=== PATIENT | male | born 1985 | race African-American/Black ===

== ENCOUNTER 2017-11-06 23:54 | Emergency (ER) | payer OTHER ==
[~2017-11-06] VITALS: Ht 167.6 cm; Wt 109.7 kg
[2017-11-07] VITALS: TEMP 36.9; Ht 167.6 cm; Wt 109.7 kg
[2017-11-07] MEDS ORDERED: PENI-82 PO (00:22)
[2017-11-07] MEDS ORDERED: OXYC-90 PO (00:22)
--- NOTE | 2017-11-07 00:23 | EMERGENCY ROOM VISIT NOTE ---
History First contact with patient: 00:01 Chief Complaint: DENTAL PAIN Stated Complaint: BAD TOOTH PAIN Nursing Triage Summary: Patient reports that he is having top right sided dental pain. Pain started last night, ibuprofen helped at first, now it's not. History of Present Illness The patient is a 32 year old male who presents to the Emergency Room with complaints of upper right dental pain. The patient states that he has a "bad tooth" and has had a hole in it for a while. He states that he typically has intermittent pain in the tooth but it usually goes away with ibuprofen. He has taken ibuprofen on 2 occasions today without relief of the pain. The pain has been constant throughout the day today. The patient is a smoker. He rates his discomfort an 8.5/10. He states the pain is radiating into his ear and face. He does not have a dentist. Review of Systems A complete 10 point review of systems was reviewed with the patient with pertinent positives and negatives as per history of present illness. All else were negative. Past Medical/Surgical History Medical Problems: (1) No significant active problems Social History Smoking Status: Current Every Day Smoker Occupation Status: employed Current/Historical Medications Scheduled Penicillin V Potassium (Veetids), 500 MG PO QID Scheduled PRN Oxycodone Ir (Roxicodone Ir), 1 TAB PO Q4H PRN for Pain Physical Exam Vital Signs Date Time Temp Pulse Resp B/P (MAP) Pulse Ox O2 Delivery O2 Flow Rate FiO2 11/07/17 00:31 61 18 149/84 98 11/07/17 00:00 36.9 62 18 143/96 97 Room Air Physical Exam VITALS: Vitals are noted on the nurse's note and reviewed by myself. Vital signs stable. GENERAL: This is a 32-year-old male, in no acute distress, nondiaphoretic, well- developed well-nourished. SKIN: The skin was without rashes. EARS: External auditory canals clear, tympanic membranes pearly vazquez without erythema or effusion bilaterally. EYES: Pupils equal round and reactive to light and accommodation. MOUTH: Mucous membranes moist. There are are multiple dental caries. There is significant decay to the right upper back molar. No significant gum swelling or drainage. NECK: Supple without nuchal rigidity. No lymphadenopathy. HEART: Regular rate and rhythm without murmurs gallops or rubs. LUNGS: Clear to auscultation bilaterally without wheezes, rales or rhonchi. NEURO: Patient was alert and oriented to person place and time. Medical Decision & Procedures Medications Administered Medications (Trade) Dose Ordered Sig/Livia Route Start Time Stop Time Status Last Admin Dose Admin Penicillin V Potassium (Pen-Vk 500MG Home Pack) 1 homepack UD ONCE PO 11/07/17 00:30 11/07/17 00:31 DC 11/07/17 00:27 1 HOMEPACK Oxycodone HCl (Roxicodone Immediate Rel 5MG Home Pack) 1 homepack UD ONCE PO 11/07/17 00:30 11/07/17 00:31 DC 11/07/17 00:27 1 HOMEPACK Medical Decision Differential diagnosis includes dentalgia, dental abscess, dental caries, Cristiano 's angina, facial cellulitis, among others. The patient was evaluated as above. He presents today complaining of dental pain. He will be placed on penicillin. He was given a home pack and prescription of OxyIR for pain. He was advised to follow-up with a dentist for definitive care. He verbalized understanding of my assessment and treatment plan and was discharged home in good condition. [place] Drug Monitoring Program Search Results: patient reviewed within database, no issues identified Medication Reconcilliation Current Medication List: was personally reviewed by me Blood Pressure Screening Patient's blood pressure: Normal blood pressure Impression Primary Impression: Dental abscess Departure Information Dispostion Home / Self-Care Condition GOOD Prescriptions Oxycodone Ir (Roxicodone Ir) 5 Mg Tab 1 TAB PO Q4H Y for Pain, #12 TAB For Initial Treatment Prov: Twila De La Rosa PA-C 11/07/17 Penicillin V Potassium (Veetids) 500 Mg Tab 500 MG PO QID for 10 Days, #40 TAB Prov: Twila De La Rosa PA-C 11/07/17 Referrals No Doctor, Assigned (PCP) Patient Instructions My [facility] Additional Instructions You have been treated in the Emergency Department for Dental Pain. You have been prescribed OxyIR to be used for pain control. This is a narcotic medication. You cannot drive or consume alcohol while on this medicine. This medicine should only be used for pain that cannot be controlled with over-the- counter pain medicines. You were prescribed Pen-Vee K to be taken 4 times daily as prescribed for 10 days. This is an antibiotic. All antibiotics have the potential to cause diarrhea. Stop this medication and contact a medical provider if you were to develop any significant adverse side effects including: wheezing, shortness of breath, passing out, vomiting, or a diffuse rash. Always take antibiotics as directed and COMPLETE the ENTIRE course regardless of the improvement of your symptoms. For pain control, you can use the following [id number] medicines (if >12 yo): - Regular strength (325mg/tab) Tylenol (acetaminophen) 2 tabs every 4-6 hours as needed. Do not exceed 12 tablets in a 24 hour period. Avoid taking more than 4 grams (4000 mg) of Tylenol per day. This includes any other sources of acetaminophen you may take on a regular basis. - Regular strength (200 mg/tab) Advil (ibuprofen) 1-2 tabs every 4-6 hours as needed. Do not exceed a dose of 3200 mg per day. Refrain from smoking cigarettes or using chewing tobacco until you have been evaluated by your dentist. Keeping beverages lukewarm and consuming soft foods can decrease your pain. Warm compresses over the affected area may offer some relief. You MUST seek evaluation of your dental pain by a dentist following your visit to the Emergency Department. The Emergency Department is not capable of treating dental issues long-term. You should call your dentist as soon as possible to make an appointment for evaluation of your dental pain. Return to the emergency department if you develop the following symptoms despite treatment course outlined above: fever, intractable pain, increased redness, swelling, or purulent discharge.
[2017-11-07] MEDS ORDERED: OXYCODONE IR HOME PACK PO ONE (00:30)
[2017-11-07] MEDS ORDERED: PENICILLIN HOME PACK 500MG (4 DOSES)BTL PO ONE (00:30)
[2017-11-07 00:31] VITALS: BP 149/84; PULSE 61; O2SAT 98
== END 2017-11-07 00:32 | disposition home or self-care (01) ==
LOC: C.EDB 23:55 → C.EDA 11-07 00:32
DX: K04.7 Periapical abscess without sinus (principal); K02.9 Dental caries, unspecified; F17.200 Nicotine dependence, unspecified, uncomplicated